=== PATIENT | female | born 1970 | race Caucasian/White ===

== ENCOUNTER 2018-09-30 13:55 | Emergency (ER) | payer OTHER ==
--- NOTE | 2018-09-30 14:06 | EDPHY ---
H & P Time Seen by Provider: 09/30/18 13:58 HPI/ROS: Chief Complaint: Ankle injury HPI: 48-year-old woman sustained an inversion injury to her right ankle when she stepped off a curb approximately 30 min prior to arrival. Patient has pain and swelling. She has been unable to ambulate. Has a prior cuboid fracture in the past. ROS: 10 systems were reviewed and were negative except those elements noted in the HPI. Social History: No smoking, no alcohol, no recreational drug use Family History: non-contributory Physical Exam: General: Awake, alert, no acute distress Right lower extremity: Knee is nontender, full range of motion Right ankle: Patient has significant tenderness over the lateral malleolus with tenderness, no deformity. No medial malleolar tenderness. No midfoot tenderness. No calcaneal tenderness. She has 2+ dorsalis pedis pulses. Sensations intact. Capillary refills less than 2 sec. Skin: No rash Constitutional: Initial Vital Signs Temperature (C) 36.9 C 09/30/18 14:03 Heart Rate 85 09/30/18 14:03 Respiratory Rate 16 09/30/18 14:03 Blood Pressure 119/86 H 09/30/18 14:03 O2 Sat (%) 99 09/30/18 14:03 Allergies/Adverse Reactions: peanut Allergy (Verified 09/30/18 14:03) Home Medications: Medication Instructions Recorded Azopt 10/25/09 Methazolimide 02/01/10 Hydrocodone/Acetaminophen 1 - 2 each PO Q4-6PRN PRN #10 09/30/18 [Hydrocodon-Acetaminophen 5-325] tablet Medical Decision Making - Diagnostics Imaging Results: Ankle x-rays consistent with a distal fibular avulsion fracture Imaging: I viewed and interpreted images myself ED Course/Re-evaluation: Patient placed in a posterior and sugar-tong Orthoglass splint by the [place]. I have inspected the splint. It is in good position with normal perfusion. Patient was discharged with crutches. She will follow up with Orthopedics. - Data Points Medications Given: Discontinued Medications Ibuprofen (Motrin) 600 mg PO EDNOW ONE Stop: 09/30/18 14:09 Last Admin: 09/30/18 14:18 Dose: 600 mg Departure - Departure Disposition: Home, Routine, Self-Care Clinical Impression: Fibula fracture Condition: Good Instructions: Ankle Fracture (ED), Splint Care (ED), Crutch Instructions (ED), R.I.C.E. Treatment (ED) Additional Instructions: Follow up with Orthopedics in 4-5 days. Return to the emergency department for increasing pain, worsening swelling, numbness or tingling, or any other concerns. Referrals: NONE *PRIMARY CARE P,. [Primary Care Provider] - As per Instructions Gisela Petersen MD [Medical Doctor] - As per Instructions Prescriptions: Hydrocodone/Acetaminophen [Hydrocodon-Acetaminophen 5-325] 1 - 2 each PO Q4- 6PRN PRN #10 tablet PRN Reason: Pain, Severe
[2018-09-30] MEDS ORDERED: IBUPROFEN 600 MG TAB PO ONE (14:08)
[2018-09-30] MEDS ORDERED: HYDROCODONE/APAP 5/325 TAB PO ONE (14:30)
[2018-09-30 15:17] VITALS: BP 131/88
== END 2018-09-30 15:15 | disposition home or self-care (01) ==
LOC: CED 13:55
PROC: 2W3QX1Z Immobilization of Right Lower Leg using Splint (ICD-10-PCS; principal; 2018-09-30)
DX: S82.61XA Displaced fracture of lateral malleolus of right fibula, initial encounter for closed fracture (principal); X50.9XXA Other and unspecified overexertion or strenuous movements or postures, initial encounter; Y92.480 Sidewalk as the place of occurrence of the external cause; Y93.9 Activity, unspecified; Y99.9 Unspecified external cause status
CPT/HCPCS: 73610-PO